=== PATIENT | female | born 1950 | race Caucasian/White ===

== ENCOUNTER 2016-06-26 13:45 | Outpatient (CLI) | payer MEDICARE, OTHER | END 2016-06-26 13:46 | disposition home or self-care (01) | DX: G47.33 Obstructive sleep apnea (adult) (pediatric) (principal) | CPT/HCPCS: 99214; G0463 ==

== ENCOUNTER 2016-10-26 00:11 | Emergency (ER) | payer MEDICARE, OTHER ==
[2016-10-26] MEDS ORDERED: IOPAMIDOL-300 100 ML VIAL IVP ONE (03:00)
== END 2016-10-26 04:01 | disposition home or self-care (01) ==
DX: R07.89 Other chest pain (principal); R68.84 Jaw pain; M54.9 Dorsalgia, unspecified; I10 Essential (primary) hypertension; Z79.82 Long term (current) use of aspirin
CPT/HCPCS: 36415; 71020; 71275; 80053; 83690; 84484; 85025; 85379; 93005; 93010; 99283; 99284; Q9967

== ENCOUNTER 2016-11-02 11:14 | Outpatient (CLI) | payer MEDICARE, OTHER | END 2016-11-02 11:15 | disposition home or self-care (01) | LOC: DI 11:14 | PROVIDERS: ATTEND Family Medicine | DX: I51.7 Cardiomegaly (principal); I25.10 Atherosclerotic heart disease of native coronary artery without angina pectoris | CPT/HCPCS: 93306 ==

== ENCOUNTER 2017-01-03 10:41 | Outpatient (CLI) | payer MEDICARE, OTHER ==
--- NOTE | 2016-12-20 20:00 | CARDIAC PROCEDURE NOTE ---
DATE OF SERVICE: 12/20/2016 00:00:00 PRIMARY CARE PHYSICIAN: Helene Kitchen M.D. PROCEDURES PERFORMED: Pharmacologic stress test. The patient arrived today having had a cup of caffeinated coffee just one hour prior to arrival, desp ite having been counseled otherwise. She will be rescheduled for her test. JOB #: [id number] EXT JOB #:[id number]
--- NOTE | 2017-01-03 16:39 | Nuclear Medicine Report ---
EXAM: SINGLE-ISOTOPE PHARMACOLOGICAL STRESS TEST WITH ADENOSINE. SINGLE-ISOTOPE AND SAME-DAY REST/STRESS MY OCARDIAL PERFUSION SCANS WITH TOMOGRAPHIC IMAGING, QUANTITATIVE ANALYSIS, WALL MOTION ANALYSIS AND CA LCULATION OF EJECTION FRACTION. EXAM DATE: 01/03/2017 12:08 p.m. CLINICAL HISTORY: Chest pain, hypertension. COMPARISON: None. TECHNIQUE: Following the intravenous administration of 10.7 mCi of Tc-99m sestamibi, a rest myocardia l perfusion scan was done with tomography. Motion correction was applied when appropriate. After a delay of several hours on the same day, a pharmacological stress was performed with the infus ion of adenosine. According to protocol, 41.7 mCi of Tc-99m sestamibi was injected for stress myocard ial perfusion scan. Stress myocardial perfusion was done with tomography without attenuation correcti on. Motion correction was applied when appropriate. Gated tomographic images were obtained for wall motion analysis and computation of left ventricular ejection fraction. FINDINGS: No fixed or reversible perfusion defect. Normal chamber size. Normal wall motion. The left ventricular end-diastolic volume is 85 cc. The left ventricular end-systolic volume is 22 cc . The left ventricular ejection fraction is calculated to be 74%. IMPRESSION: 1. No ischemia or infarction. 2. Normal ejection fraction of 74% 3. Normal chamber size and wall motion. [facility] Referring Provider Line: [phone] SITE ID: [id number]
[2017-01-03 17:25] VITALS: BP 138/90
--- NOTE | 2017-01-07 07:37 | CARDIAC PROCEDURE NOTE ---
DATE OF SERVICE: 01/03/2017 00:00:00 PRIMARY CARE PROVIDER: Helene Kitchen MD PROCEDURE: Pharmacologic stress test. PROCEDURE SYMPTOMS: Chest pain with ER workup. CARDIAC RISK FACTORS INCLUDE: Age, hypertension, and hyperlipidemia. PREVIOUS CARDIAC PROCEDURES: There are no prior cardiac procedures. CLINICAL HISTORY: A 66-year-old female without known coronary artery disease. INITIAL RESTING VITAL SIGNS: Blood pressure 138/90, heart rate 68, height 63 inches, weight 248 poun ds, BMI 43.7. PROCEDURE AND FINDINGS: Patient identity and date verified, consent signed. Safety stop. Pha rmacologic stress testing was performed with Lexiscan at a dose of 0.4 mg over 10 seconds. The heart rate increased to 97 beats per minute from the infusion. Blood pressure response was fercho l during the stress procedure. Patient developed slight symptoms of chest tightness, which resolved spontaneously. The resting electrocardiogram demonstrated normal sinus rhythm with no ST or T-wave c hanges. Maximum ST segment depression with stress was zero. There was no ectopy. FINAL IMPRESSIONS 1. Negative electrocardiogram for ischemia in the setting of vasodilator stress. 2. Negative stress test for angina. 3. No ectopy. 4. Await myocardial perfusion report. JOB #: [id number] EXT JOB #:[id number]
== END 2017-01-03 10:42 | disposition home or self-care (01) ==
LOC: DI 10:41
PROVIDERS: ATTEND Family Medicine
DX: R07.9 Chest pain, unspecified (principal); I10 Essential (primary) hypertension
CPT/HCPCS: 78452; 93017; A9500

== ENCOUNTER 2017-03-04 08:34 | Outpatient (CLI) | payer MEDICARE, OTHER ==
--- NOTE | 2017-03-05 19:24 | Mammography Report ---
DIGITAL SCREENING MAMMOGRAM: 03/04/2017 COMPARISON: 03/12/2016, 12/27/2014, 12/15/2013, 11/26/2012, 12/05/2011, 12/08/2010, 10/17/2009, 09/16, 03/19/2007. TECHNIQUE: Bilateral digital CC and MLO projections. FINDINGS: There are scattered fibroglandular densities. Small nodular densities in the right upper outer quadrant are unchanged. A few punctate calcifications are also stable. No suspicious dominant mass, architectural distortion, skin thickening, or suspicious new microcalcifications. IMPRESSION: NEGATIVE. BI-RADS 1. SUGGEST ROUTINE FOLLOWUP IN 1 YEAR. STANDARD QUALIFYING STATEMENTS 1. This examination was reviewed with the aid of Computer-Aided Detection (CAD). 2. A negative or benign imaging report should not delay biopsy if clinically suspicious findings are present. Consider surgical consultation if warranted. More than 5% of cancers are not identified by i maging. 3. Dense breasts may obscure an underlying neoplasm. JOB #: [id number] EXT JOB #:[id number]
== END 2017-03-04 08:35 | disposition home or self-care (01) ==
LOC: DI 08:34
PROVIDERS: ATTEND Family Medicine
DX: Z12.31 Encounter for screening mammogram for malignant neoplasm of breast (principal)
CPT/HCPCS: 77067

== ENCOUNTER 2017-04-09 08:28 | Outpatient (CLI) | payer MEDICARE, OTHER ==
[2017-04-09 12:39] LABS: BASOPHILS % (AUTO) 0.6 %; EOSINOPHILS # (AUTO) 0.2 10^3/uL (0.0-0.7); EOSINOPHILS % (AUTO) 2.6 %; HCT - HEMATOCRIT 37.5 % (37.0-47.0); HGB - HEMOGLOBIN 12.6 g/dL (12.0-16.0); LYMPHOCYTES # (AUTO) 2.3 10^3/uL (1.5-3.5); LYMPHOCYTES % (AUTO) 37.3 %; MEAN CORPUSCULAR HEMOGLOBIN 31.2 pg (27.0-31.0); MEAN CORPUSCULAR HGB CONC 33.7 g/dL (32.0-36.0); MEAN CORPUSCULAR VOLUME 92.5 fL (81.0-99.0); MEAN PLATELET VOLUME 8.7 fL (7.9-10.8); MONOCYTES # (AUTO) 0.5 10^3/uL (0.0-1.0); MONOCYTES % (AUTO) 7.6 %; NEUTROPHILS # (AUTO) 3.2 10^3/uL (1.5-6.6); NEUTROPHILS % (AUTO) 51.9 %; RED BLOOD COUNT 4.05 10^6/uL (4.20-5.40); RED CELL DISTRIBUTION WIDTH 13.2 % (12.0-15.0); UNCORRECTED WHITE BLOOD COUNT 6.1 x10^3/uL; WHITE BLOOD COUNT 6.1 x10^3/uL (4.8-10.8)
[2017-04-09 13:18] LABS: ALBUMIN/GLOBULIN RATIO 1.3 (1.0-2.2); BILIRUBIN,TOTAL 0.6 mg/dL (0.2-1.0); BUN - BLOOD UREA NITROGEN 11 mg/dL (6-20); CALCIUM 9.3 mg/dL (8.5-10.3); CARBON DIOXIDE - CO2 27 mmol/L (21-32); CHLORIDE 105 mmol/L (101-111); CHOL/HDL RATIO 3.7 (<4.4); CHOLESTEROL 176 mg/dL; CREATININE 0.8 mg/dL (0.4-1.0); GFR - MDRD 72 (>89); GLUCOSE 95 mg/dL (70-100); HDL CHOLESTEROL 47 mg/dL; LDL/HDL RATIO 2.1 (<4.4); POTASSIUM 3.9 mmol/L (3.5-5.0); SODIUM 141 mmol/L (135-145); TRIGLYCERIDES 155 mg/dL; VLDL CHOLESTEROL 31 mg/dL
== END 2017-04-09 08:29 ==
LOC: LAB.WCP 08:28
PROVIDERS: ATTEND Family Medicine
DX: I10 Essential (primary) hypertension (principal); E78.5 Hyperlipidemia, unspecified
CPT/HCPCS: 36415; 80053; 80061; 85025

== ENCOUNTER 2017-09-05 10:15 | Outpatient (CLI) | payer MEDICARE, OTHER | END 2017-09-05 10:16 | disposition home or self-care (01) | LOC: SC 10:15 | PROVIDERS: ATTEND Nurse Practitioner Family | DX: G47.33 Obstructive sleep apnea (adult) (pediatric) (principal) | CPT/HCPCS: 99214; G0463; 99212 ==

== ENCOUNTER 2018-01-22 08:00 | Outpatient (CLI) | payer MEDICARE, OTHER ==
[2018-01-22 13:31] LABS: BASOPHILS % (AUTO) 0.5 %; EOSINOPHILS # (AUTO) 0.1 10^3/uL (0.0-0.7); EOSINOPHILS % (AUTO) 2.5 %; HGB - HEMOGLOBIN 12.8 g/dL (12.0-16.0); LYMPHOCYTES # (AUTO) 2.3 10^3/uL (1.5-3.5); LYMPHOCYTES % (AUTO) 40.8 %; MEAN CORPUSCULAR HEMOGLOBIN 31.1 pg (27.0-31.0); MEAN CORPUSCULAR HGB CONC 33.8 g/dL (32.0-36.0); MEAN PLATELET VOLUME 9.2 fL (7.9-10.8); MONOCYTES # (AUTO) 0.4 10^3/uL (0.0-1.0); MONOCYTES % (AUTO) 7.7 %; NEUTROPHILS # (AUTO) 2.8 10^3/uL (1.5-6.6); NEUTROPHILS % (AUTO) 48.5 %; PLT - PLATELET COUNT 154 10^3/uL (130-450); RED BLOOD COUNT 4.12 10^6/uL (4.20-5.40); RED CELL DISTRIBUTION WIDTH 13.6 % (12.0-15.0); WHITE BLOOD COUNT 5.7 x10^3/uL (4.8-10.8)
[2018-01-22 13:46] LABS: ALBUMIN/GLOBULIN RATIO 1.3 (1.0-2.2); ALKALINE PHOSPHATASE 81 IU/L (42-121); ALT ALANINE AMINOTRANSFERASE 16 IU/L (10-60); AST ASPARTATE AMINOTRANSFERASE 17 IU/L (10-42); BILIRUBIN,TOTAL 0.5 mg/dL (0.2-1.0); BUN - BLOOD UREA NITROGEN 12 mg/dL (6-20); CALCIUM 9.2 mg/dL (8.5-10.3); CARBON DIOXIDE - CO2 27 mmol/L (21-32); CHLORIDE 104 mmol/L (101-111); CHOL/HDL RATIO 3.5 (<4.4); CHOLESTEROL 174 mg/dL; CREATININE 0.8 mg/dL (0.4-1.0); GFR - MDRD 72 (>89); GLUCOSE 104 mg/dL (70-100); HDL CHOLESTEROL 50 mg/dL; LDL CHOLESTEROL,CALCULATED 95 mg/dL; LDL/HDL RATIO 1.9 (<4.4); SODIUM 139 mmol/L (135-145); TOTAL PROTEIN 7.2 g/dL (6.7-8.2); VLDL CHOLESTEROL 29 mg/dL
== END 2018-01-22 08:01 | disposition home or self-care (01) ==
LOC: LAB.WCP 08:00
PROVIDERS: ATTEND Family Medicine
DX: I51.7 Cardiomegaly (principal); E78.5 Hyperlipidemia, unspecified; I10 Essential (primary) hypertension; Z79.899 Other long term (current) drug therapy
CPT/HCPCS: 36415; 80053; 80061; 83721; 85025

== ENCOUNTER 2018-01-25 07:33 | Outpatient (CLI) | payer MEDICARE, OTHER ==
--- NOTE | 2018-01-25 23:51 | MRI Report ---
Procedure Date: 01/25/2018 Accession Number: [id number] / [id number] Procedure: MRI - Lumbar Spine W/O CPT Code: FULL RESULT: EXAM: MRI LUMBAR SPINE WITHOUT CONTRAST EXAM DATE: 01/25/2018 07:53 AM. CLINICAL HISTORY: Incontinence of feces, low back pain. COMPARISON: None. TECHNIQUE: Multiplanar, multisequence T1-weighted and fluid-sensitive sequences of the lumbar spine from T12 to S1 without contrast. Other: None. FINDINGS: Spinal Canal: The conus terminates at L1. The conus medullaris and cauda equina are unremarkable. Alignment: No scoliosis or spondylolisthesis. Bone Marrow: Five djs-ugt-nkeiiru lumbar vertebral bodies are assumed. No gross fractures or bone lesions. No bone marrow replacement. Disk Levels/Facets: T12-L1: Mild disk degeneration. Negative for spinal canal stenosis or foraminal stenosis. L1-L2: Mild disk degeneration. The intervertebral foramina are negative for stenosis. Negative for spinal canal stenosis. L2-L3: Moderate disk degeneration. The left intervertebral foramen is negative for stenosis. Mild right foraminal stenosis from foraminal 2 mm disk protrusion. Posterior element hypertrophy. L3-L4: Diffuse disk bulge. Negative for spinal canal stenosis or foraminal stenosis. Mild disk degeneration. L4-L5: Posterior right paracentral 2 mm disk protrusion with mild right lateral recess stenosis (image 11 series 601). Negative for foraminal stenosis. Mild facet joint arthrosis. L5-S1: Central posterior 2 mm disk protrusion without thecal sac deformity or S1 nerve root effacement. The intervertebral foramina are negative for stenosis. Musculature: Low lumbar and sacrum posterior paraspinal muscle atrophy with fatty replacement. Other: Large posterior right kidney 6 cm cyst. IMPRESSION: 1. Posterior central 2 mm L5-S1 disk protrusion without thecal sac deformity, S1 nerve root displacement or spinal canal stenosis. 2. Posterior right paracentral L4-L5 2 mm disk protrusion with mild right lateral recess stenosis. Comment: The following findings are so common in adults without low back pain that while we report their presence, they must be interpreted with caution and in the context of the clinical situation. (Reference Charank et al, Spine 2001) Prevalence of findings in patients without low back pain: Disk degeneration (any evidence): 92% Disk desiccation/T2 signal loss: 83% Disk height loss: 56% Disk bulge: 64% Disk protrusion: 32% Annular tear/high intensity zone: 38% RADIA
== END 2018-01-25 07:34 | disposition home or self-care (01) ==
LOC: DI 07:33
PROVIDERS: ATTEND Family Medicine
DX: M51.36 Other intervertebral disc degeneration, lumbar region (principal); M51.26 Other intervertebral disc displacement, lumbar region; M48.061 Spinal stenosis, lumbar region without neurogenic claudication; R15.9 Full incontinence of feces
CPT/HCPCS: 72148

== ENCOUNTER 2018-02-05 17:45 | Outpatient (CLI) | payer MEDICARE, OTHER ==
--- NOTE | 2018-02-06 11:00 | Ultrasound Report ---
Procedure Date: 02/05/2018 Accession Number: [id number] / [id number] Procedure: US - Retroperitoneal CPT Code: FULL RESULT: EXAM: RENAL ULTRASOUND EXAM DATE: 02/05/2018 07:12 PM. CLINICAL HISTORY: ABNORMAL RADIOLOGIC FINDINGS ON DI OF RIGHT KIDNEY. COMPARISON: MRI lumbar spine 01/25/2018. TECHNIQUE: Real-time scanning was performed with static images obtained. FINDINGS: Right Kidney: 11.5 x 6.6 x 6.1 cm. Simple posterior cyst 4.9 x 5.1 x 5.5 cm. Normal echotexture with no stones, contour-deforming solid masses, or hydronephrosis. Left Kidney: 11.3 x 5.7 x 5.3 cm. 5 mm non-shadowing echogenic focus interpolar region, question fat or non-shadowing stone. Normal echotexture with no other potential stones, contour-deforming solid masses, or hydronephrosis. Bladder: Bilateral jets seen. The prevoid bladder volume was 332 cc. The postvoid bladder volume was 30 cc. Other: None. IMPRESSION: 1. 4.9 x 5.1 x 5.5 cm right renal cyst. 2. 5 mm left non-shadowing interpolar echogenic focus, question fat versus non-shadowing stone. 3. No evidence of obstruction or suspicious solid masses. RADIA
== END 2018-02-05 17:46 | disposition home or self-care (01) ==
LOC: DI 17:45
PROVIDERS: ATTEND Family Medicine
DX: N28.1 Cyst of kidney, acquired (principal); R93.421 Abnormal radiologic findings on diagnostic imaging of right kidney
CPT/HCPCS: 76770

== ENCOUNTER 2018-07-18 21:37 | Outpatient (CLI) | payer MEDICARE, OTHER ==
--- NOTE | 2018-07-19 00:52 | XRAY Report ---
Reason: LEG PAIN,RIGHT,KNEE PAIN,RIGHT Procedure Date: 07/18/2018 Accession Number: [id number] / [id number] Procedure: XR - Knee 3 View RT CPT Code: FULL RESULT: EXAM: RIGHT KNEE RADIOGRAPHY EXAM DATE: 07/18/2018 09:48 PM. CLINICAL HISTORY: Leg pain, right; knee pain, right. COMPARISON: None. TECHNIQUE: 3 views. FINDINGS: Bones: Normal. No fractures or bone lesions. Joints: Moderate narrowing of the patellofemoral joint space with mild medial compartment narrowing. Small tricompartment marginal osteophytes seen. There is no joint effusion or malalignment. Soft Tissues: Normal. No soft tissue swelling. IMPRESSION: Mild to moderate osteoarthritis. No acute bony abnormality. RADIA
== END 2018-07-18 21:38 | disposition home or self-care (01) ==
LOC: DI 21:37
PROVIDERS: ATTEND Family Medicine
DX: M17.11 Unilateral primary osteoarthritis, right knee (principal)

== ENCOUNTER 2018-07-19 19:33 | Outpatient (CLI) | payer MEDICARE, OTHER ==
--- NOTE | 2018-07-19 20:55 | Ultrasound Report ---
Reason: LEG PAIN RIGHT,KNEE PAIN RIGHT Procedure Date: 07/19/2018 Accession Number: [id number] / [id number] Procedure: US - Duplex Ext Veins Right CPT Code: FULL RESULT: EXAM: RIGHT LOWER EXTREMITY VENOUS ULTRASOUND EXAM DATE: 07/19/2018 08:45 PM. CLINICAL HISTORY: LEG PAIN RIGHT,KNEE PAIN RIGHT. COMPARISON: None. TECHNIQUE: Real-time sonographic vascular imaging was performed by the beef killer through the lower extremity utilizing both color-flow and Doppler spectral analysis. Multiple artist representative static images were saved for review. FINDINGS: Common Femoral Vein (CFV): Normal. CFV-GSV Junction: Normal. Profunda Femoral Vein (PFV): Normal. Femoral Vein (FV) Prox: Normal. Femoral Vein (FV) Mid: Normal. Femoral Vein (FV) Dist: Normal. Popliteal Vein: Normal. Posterior Tibial Veins: Normal. Peroneal Veins: Normal. IMPRESSION: No evidence for deep venous thrombosis. RADIA
== END 2018-07-19 19:34 | disposition home or self-care (01) ==
LOC: DI 19:33
PROVIDERS: ATTEND Family Medicine
DX: M79.604 Pain in right leg (principal); M25.561 Pain in right knee

== ENCOUNTER 2018-08-02 14:50 | Outpatient (CLI) | payer MEDICARE, OTHER ==
--- NOTE | 2018-08-05 11:36 | Ultrasound Report ---
Reason: RENAL CYST,RIGHT Procedure Date: 08/02/2018 Accession Number: [id number] / [id number] Procedure: US - Retroperitoneal CPT Code: FULL RESULT: EXAM: RENAL ULTRASOUND EXAM DATE: 08/02/2018 04:25 PM. CLINICAL HISTORY: Renal cyst, right. COMPARISON: Retroperitoneal 02/05/2018 7:12 PM. TECHNIQUE: Real-time scanning was performed with static images obtained. FINDINGS: Right Kidney: 13.2 x 5.4 x 5.1 cm. Normal echotexture with no stones, contour-deforming masses, or hydronephrosis. Anechoic 6 x 4.4 x 6.1 cm mid right renal cyst. Previously measuring 4.9 x 5.1 x 5.5 cm. No concerning features. Left Kidney: 12.3 x 5.4 x 5.1 cm. No contour deforming renal mass or hydronephrosis. Echogenic 1 cm inferior left renal echogenic foci without posterior acoustic shadowing. Bladder: Bilateral jets seen. The prevoid bladder volume was 341 cc. The postvoid bladder volume was 20 cc. Other: None. IMPRESSION: 1. 1 cm echogenic focus in the mid left kidney without posterior acoustic shadowing. Differential includes a fat-containing lesion like an angiomyolipoma or complex hemorrhagic cyst. 2. Simple 6 cm right renal cyst. Previously measuring 5.5 cm. No hydronephrosis in either kidney. 3. Normal bladder. RADIA
== END 2018-08-02 14:51 | disposition home or self-care (01) ==
LOC: DI 14:50
PROVIDERS: ATTEND Family Medicine
DX: N28.1 Cyst of kidney, acquired (principal)
CPT/HCPCS: 76770

== ENCOUNTER 2018-09-16 13:34 | Outpatient (CLI) | payer MEDICARE, OTHER | END 2018-09-16 13:35 | disposition home or self-care (01) | LOC: SC 13:34 | PROVIDERS: ATTEND Nurse Practitioner Family | DX: G47.33 Obstructive sleep apnea (adult) (pediatric) (principal); R03.0 Elevated blood-pressure reading, without diagnosis of hypertension | CPT/HCPCS: 99214; G0463; 99212 ==

== ENCOUNTER 2018-10-08 08:00 | Outpatient (CLI) | payer MEDICARE, OTHER | END 2018-10-08 23:59 | disposition home or self-care (01) | LOC: LAB.R 08:00 | PROVIDERS: ATTEND Family Medicine | DX: N76.4 Abscess of vulva (principal) | CPT/HCPCS: 87070; 87077; 87181; 87205 ==

== ENCOUNTER 2019-03-11 15:12 | Outpatient (CLI) | payer MEDICARE, OTHER ==
--- NOTE | 2019-03-12 10:17 | Mammography Report ---
Reason: SCREENING MAMMO Procedure Date: 03/11/2019 Accession Number: [id number] / [id number] Procedure: KALLIE - Screening Mammo w/Dharmesh CPT Code: FULL RESULT: EXAM: Screening Mammo w/Dharmesh DATE: 03/11/2019 3:46 PM CLINICAL HISTORY: Screening encounter. History of benign breast biopsy on both sides. TECHNIQUE: (B) - Bilateral CC and MLO views were obtained. COMPARISON: 03/04/2017 through 12/15/2013. PARENCHYMAL PATTERN: (F) - The breast(s) demonstrate(s) diffuse fatty replacement. FINDINGS: Postbiopsy changes are again seen, more pronounced in the right breast. These are typically benign in appearance. Long-term stability of a cluster of isodense sub-5 mm well-circumscribed nodules in the lateral right breast is redemonstrated, typically benign. There are no suspicious masses, calcifications, or areas of distortion. IMPRESSION: Benign findings. BI-RADS category 2. RECOMMENDATION: (ANNUAL) - Recommend routine annual screening mammography. BI-RADS CATEGORY: (2) - Benign Findings. STANDARD QUALIFYING STATEMENTS: 1. This examination was not reviewed with the aid of Computer-Aided Detection (CAD). 2. A negative or benign imaging report should not preclude biopsy if clinically suspicious findings are present. 3. Dense breasts may obscure an underlying neoplasm. 4. This examination was reviewed with the aid of 3D breast imaging (tomosynthesis).
== END 2019-03-11 15:13 | disposition home or self-care (01) ==
LOC: DI 15:12
DX: Z12.31 Encounter for screening mammogram for malignant neoplasm of breast (principal)
CPT/HCPCS: 77063; 77067

== ENCOUNTER 2019-11-04 08:00 | Outpatient (CLI) | payer MEDICARE, OTHER ==
[2019-11-04 13:27] LABS: BASOPHILS % (AUTO) 0.5 %; EOSINOPHILS # (AUTO) 0.2 10^3/uL (0.0-0.7); EOSINOPHILS % (AUTO) 2.6 %; HGB - HEMOGLOBIN 12.9 g/dL (12.0-16.0); LYMPHOCYTES # (AUTO) 2.1 10^3/uL (1.5-3.5); MEAN CORPUSCULAR HEMOGLOBIN 30.9 pg (27.0-31.0); MEAN CORPUSCULAR HGB CONC 31.3 g/dL (32.0-36.0); MEAN CORPUSCULAR VOLUME 98.8 fL (81.0-99.0); MEAN PLATELET VOLUME 11.7 fL (7.9-10.8); MONOCYTES # (AUTO) 0.5 10^3/uL (0.0-1.0); MONOCYTES % (AUTO) 7.8 %; NEUTROPHILS # (AUTO) 3.3 10^3/uL (1.5-6.6); NEUTROPHILS % (AUTO) 54.8 %; PLT - PLATELET COUNT 156 10^3/uL (130-450); RED BLOOD COUNT 4.17 10^6/uL (4.20-5.40); WHITE BLOOD COUNT 6.1 x10^3/uL (4.8-10.8)
[2019-11-04 14:11] LABS: ALBUMIN 3.7 g/dL (3.2-5.5); ALBUMIN/GLOBULIN RATIO 1.1 (1.0-2.2); ALKALINE PHOSPHATASE 79 IU/L (42-121); ALT ALANINE AMINOTRANSFERASE 15 IU/L (10-60); AST ASPARTATE AMINOTRANSFERASE 14 IU/L (10-42); BILIRUBIN,TOTAL 0.6 mg/dL (0.2-1.0); BUN - BLOOD UREA NITROGEN 12 mg/dL (6-20); CALCIUM 9.2 mg/dL (8.5-10.3); CARBON DIOXIDE - CO2 27 mmol/L (21-32); CHLORIDE 106 mmol/L (101-111); CHOL/HDL RATIO 3.6 (<4.4); CHOLESTEROL 168 mg/dL; CREATININE 0.9 mg/dL (0.4-1.0); GLUCOSE 109 mg/dL (70-100); HDL CHOLESTEROL 47 mg/dL; LDL CHOLESTEROL,CALCULATED 96 mg/dL; SODIUM 141 mmol/L (135-145); TOTAL PROTEIN 7.2 g/dL (6.7-8.2); VLDL CHOLESTEROL 25 mg/dL
== END 2019-11-04 23:59 | disposition home or self-care (01) ==
LOC: LAB.WCP 08:00
PROVIDERS: ATTEND Family Medicine
DX: E78.5 Hyperlipidemia, unspecified (principal); I10 Essential (primary) hypertension
CPT/HCPCS: 36415; 80053; 80061; 83721; 84443; 85025

== ENCOUNTER 2019-11-12 11:22 | Outpatient (CLI) | payer MEDICARE, OTHER ==
[2019-11-12] MEDS ORDERED: IOVERSOL 320 100 ML VIAL IVP ONE ×2 (11:48→14:37)
--- NOTE | 2019-11-14 09:03 | CT Report ---
Reason: ADRENAL TUMOR Procedure Date: 11/12/2019 Accession Number: [id number] / [id number] Procedure: CT - ABDOMEN W/WO CPT Code: Final Report FULL RESULT: EXAM: CT ABDOMEN WITHOUT AND WITH CONTRAST (CT ADRENALS) EXAM DATE: 11/12/2019 12:13 PM. CLINICAL HISTORY: Evaluate adrenal tumor. COMPARISONS: Renal ultrasound from 08/02/2018, 02/05/2018. TECHNIQUE: Routine helical CT imaging was performed through the adrenal glands precontrast, in the portal venous phase and after a 15-minute delay. IV contrast: 100 cc Optiray 320. Reconstructions: Coronals and sagittal. In accordance with CT protocol optimization, one or more of the following dose reduction techniques were utilized for this exam: automated exposure control, adjustment of mA and/or KV based on patient size, or use of iterative reconstructive technique. FINDINGS: Lung Bases: There is wedge-shaped opacity in the anterior segment of the right upper lobe and linear opacities in the right middle lobe and lingula, which are most compatible with atelectasis or scar. A 6 mm nodule is demonstrated in the right lower lobe (series 4, image 22). Heart is mildly enlarged. Adrenal Glands: A 1.4 x 1.0 cm adrenal nodule is present (series 17, image 40). Attenuation on noncontrast image is -12 HU. Absolute washout is 61.7%. Relative washout is 82.9%. All of these characteristics are compatible with adenoma. Left adrenal gland is unremarkable. Other Solid Organs: Liver, spleen, and pancreas are unremarkable. A 6.4 cm cyst is present in the lower pole of the right kidney (series 17, image 74). A 1.2 cm lesion in the interpolar region of the left kidney (series 17, image 55) does not demonstrate appreciable enhancement in comparison to noncontrast phase, suggestive of a cyst. Additional subcentimeter hypoattenuating foci are present in both kidneys, too small to characterize. No nephrolithiasis or hydronephrosis. Gallbladder/Biliary System: Gallbladder is surgically absent. Caliber of the bile ducts is within normal limits. Bowel: There appear to be postoperative changes from gastric fundic location. A diverticulum of the second portion of the duodenum is present. No evidence of bowel obstruction or inflammation in the visualized portions. There is a tiny fat-containing ventral hernia in the left anterior abdomen (series 17, image 78). Bones: No suspicious osseous lesion. Other: There is mild atherosclerotic calcification of the abdominal aorta. No abdominal aortic aneurysm. No retroperitoneal adenopathy. IMPRESSION: 1. Right adrenal nodule demonstrates noncontrast attenuation and enhancement characteristics compatible with adrenal adenoma. A hyperfunctioning adenoma cannot be excluded by imaging. Consider correlation with biochemical testing. 2. Indeterminate 6 mm right lower lobe pulmonary nodule. If prior studies are not available to establish stability of this nodule, follow-up chest CT is recommended in 6-12 months in accordance with Fleischner Society guidelines. RADIA
== END 2019-11-12 11:23 | disposition home or self-care (01) ==
LOC: DI 11:22
PROVIDERS: ATTEND Internal Medicine Nephrology
DX: D35.01 Benign neoplasm of right adrenal gland (principal); R91.1 Solitary pulmonary nodule
CPT/HCPCS: 74170; Q9967

== ENCOUNTER 2020-10-27 08:35 | Outpatient (CLI) | payer MEDICARE, OTHER ==
--- NOTE | 2020-10-27 10:35 | CT Report ---
PROCEDURE: CHEST WO INDICATIONS: PULMONARY NODULE TECHNIQUE: Noncontrast 5 mm thick sections acquired from the pulmonary apices to the posterior costophrenic angl es. 7 mm thick coronal and sagittal MIP reformats were then acquired. For radiation dose reduction, the following was used: automated exposure control, adjustment of mA and/or kV according to patient size. COMPARISON: CT dated 11/12/2019 FINDINGS: Image quality: Excellent. Lungs and pleura: No acute air space opacities. Previously identified 6 mm diameter nodule within t he posterior medial aspect of the right lower lobe (series 4 image 222) is unchanged. Scarring within the lateral lingula is unchanged. Scarring within the right middle lobe medial segment is unchanged. No pleural effusions or pneumothorax. Central and peripheral airways are patent and normal in calib er. Mediastinum: Heart size is mildly enlarged. Mild calcification of the coronary vasculature. No peric ardial effusion. No mediastinal adenopathy by size criteria. Thoracic aorta and central pulmonary a rteries are normal in size. Esophagus is normal in caliber. No hiatal hernia. Bones and chest wall: No suspicious bony lesions. No vertebral body compression fractures. No axil deven or supraclavicular adenopathy by size criteria. The thyroid is normal in size. Abdomen: Visualized upper abdominal solid organs and bowel loops appear normal in the absence of con trast. IMPRESSION: 1. Stable right lower lobe pulmonary nodule. 2. Coronary artery disease. Reviewed by: Leola Aceves MD on 10/27/2020 10:33 AM PDT Approved by: Leola Aceves MD on 10/27/2020 10:33 AM PDT Station ID: [id number]
== END 2020-10-27 08:36 | disposition home or self-care (01) ==
LOC: DI 08:35
PROVIDERS: ATTEND Family Medicine
DX: R91.1 Solitary pulmonary nodule (principal); I25.10 Atherosclerotic heart disease of native coronary artery without angina pectoris

== ENCOUNTER 2020-11-04 08:47 | Outpatient (CLI) | payer MEDICARE, OTHER ==
--- NOTE | 2020-11-08 12:41 | Mammography Report ---
BILATERAL DIGITAL SCREENING MAMMOGRAM 3D/2D: 11/04/2020 CLINICAL: Routine screening. Comparison is made to exams dated: 03/11/2019 mammogram, 03/04/2017 mammogram, 03/12/2016 mammogram, mammogram, 12/15/2013 mammogram, and 11/26/2012 mammogram - [facility]. The t issue of both breasts is predominantly fatty. No significant masses, calcifications, or other findings are seen in either breast. There has been no significant interval change. IMPRESSION: NEGATIVE There is no mammographic evidence of malignancy. A 1 year screening mammogram is recommended. This exam was interpreted at Station ID: [id number]. NOTE: For mammograms, a report in lay terms will be sent to the patient. Approximately 15% of breast malignancies will not be visualized mammographically. In the management of a palpable breast mass, a negative mammogram must not discourage biopsy of a clinically suspicious lesion. Electronically Signed By: Simon Del Cid M.D. [facility] [place]:11/08/2020 10:33:45 ACR BI-RADS Category 1: Negative 3341F PARENCHYMAL PATTERN: (F) - The breast(s) demonstrate(s) diffuse fatty replacement. BI-RADS CATEGORY: (1) - 1 RECOMMENDATION: (ANNUAL) - Recommend routine annual screening mammography. [id number] 1 year screening LATERALITY: (B)
== END 2020-11-04 08:48 | disposition home or self-care (01) ==
LOC: DI 08:47
PROVIDERS: ATTEND Internal Medicine
DX: Z12.31 Encounter for screening mammogram for malignant neoplasm of breast (principal)

== ENCOUNTER 2020-12-05 09:08 | Outpatient (CLI) | payer MEDICARE, OTHER ==
--- NOTE | 2020-12-05 09:36 | SLEEP CARE CONSULTATION ---
Information from patient questionnaire entered by Adelina Easley. I have reviewed and concur with the information entered by Adelina Easley. This document represents the service I personally performed and the decisions made by me, Fany Sauceda MD, [facility]. History of Present Illness Service Date and Time: 12/05/2020 0908 Previous diagnosis: Severe, Obstructive Sleep Apnea-Hypopnea Syndrome AHI: 36.1 (in 2007) Reason for follow up: annual (last seen 11/2019) Equipment type: CPAP Equipment obtained from: [employer] Mask style: Nasal Mask brand: Respironics (Wisp) Prior sleep studies: Yes Year and Where: 2007 - [facility] Type of Sleep Study: Polysomnography HPI additional information: HPI: Ms. Gonzalez was diagnosed to have severe (AHI 36.1) obstructive sleep apnea- hypopnea syndrome in May 2008 and returned today for her annual follow up of CPAP therapy. The compliance report was reviewed. She continues to have good compliance. The > 4 hour compliance rate for the past 30 days is 91%. Pressure setting of 11 14 cmH2O is effective. Residual AHI is 3.3. Average time in large leak per day is 11 minutes. She wears a ResMed N20 nasal mask. CPAP Compliance Data - Data Reviewed with Patient Average duration of nightly device use: 7 hr 21 min Compliance rate %: 91.1 (180 days) Current pressure setting (cmH2O): 11-14 Humidity settin Heated hose settin Average residual AHI: 3.3 Average large leak: 11 min 36 sec Subjective Missed days of use due to: reports: mask issues Patient concerns: reports: mask leak noise Initial [place] Sleepiness Scale score: 9 (in 2007) Current [place] Sleepiness Scale score: 2 Allergies and Home Medications Drug allergies reviewed: Yes Home medication list reviewed: Yes Review of Systems Review of systems same as previous: Yes Physical Exam Height: 5 ft 3 in Weight: 260 lb Weight change since last visit: -3 lbs Body Mass Index: 46.0 BMI Classification: Morbidly Obese Impression and Plan IMPRESSION: 1. Obstructive Sleep Apnea-Hypopnea Syndrome, severe, with good treatment compliance and good apnea control. Because her Goran Respironics DreamStation device is being recalled, I will order her a new one. It is also almost 5 years old. PLAN: 1. Prescription made for an autoCPAP, heated humidifier, and related supplies. * Try to lose weight. * Return for follow up after one month of using the CPAP. Visit Type: In Office Time Spent with Patient (minutes): 15 Provider Statement: I spent 100% of the Face to Face Visit with the patient with greater than 50% spent counseling the patient and coordination of care.
== END 2020-12-05 09:09 | disposition home or self-care (01) ==
LOC: SC 09:08
PROVIDERS: ATTEND Internal Medicine Pulmonary Disease
DX: G47.33 Obstructive sleep apnea (adult) (pediatric) (principal); E66.01 Morbid (severe) obesity due to excess calories; Z68.42 Body mass index [BMI] 45.0-49.9, adult
CPT/HCPCS: 99212; G0463

== ENCOUNTER 2020-12-16 11:26 | Day surgery (SDC) | payer MEDICARE, OTHER ==
[2020-12-16] MEDS ORDERED: LACTATED RINGERS 1,000 ML IV ONE ×2 (11:30→13:22)
[2020-12-16] MEDS ORDERED: MIDAZOLAM 2 MG/2 ML VIAL ONE ×3 (12:07→12:47)
[2020-12-16] MEDS ORDERED: fentaNYL 250 MCG/5 ML VIAL ONE (12:07)
--- NOTE | 2020-12-16 12:15 | HISTORY & PHYSICAL EXAMINATION ---
Chief Complaint - Chief Complaint Chief Complaint: here for colon cancer screening History of Present Illness - History Obtained From Records Reviewed: yes History obtained from: pt Exam Limitations: none - History of Present Illness HPI Comment/Other: Here for colon cancer screening. Last screening over 10 years ago. No lower gi symptoms. History - Past Medical History Cardiovascular: reports: Hypertension, High cholesterol Respiratory: reports: Sleep apnea, CPAP use Endocrine/Autoimmune: reports: None GI: reports: None : reports: Kidney stones, Other HEENT: reports: None Psych: reports: None Musculoskeletal: reports: None Derm: reports: None MRSA Hx?: No - Past Surgical History General: reports: Cholecystectomy, Bowel surgery, Colonoscopy Meds/Allgy - Home Medications Home Medications: Ambulatory Orders Medication Instructions Recorded Confirmed Aspirin [Aspir 81] 81 mg PO DAILY 07/31/14 12/16/20 Lovastatin [Altoprev] 40 mg ORAL DAILY 07/31/14 12/16/20 Metoprolol Tartrate [Lopressor] 100 mg PO DAILY 07/31/14 12/16/20 Valacyclovir HCl [Valtrex] 500 mg PO DAILY 07/31/14 12/16/20 - Allergies Allergies/Adverse Reactions: Allergies Allergy/AdvReac Type Severity Reaction Status Date / Time No Known Drug Allergies Allergy Verified 12/16/20 11:56 Review of Systems - Other Findings Other Findings: 10 pt ros as above otherwise unremarkable Exam - Vital Signs Reviewed Vital Signs: Yes Vital Signs: Vital Signs x48h Temp Pulse Resp BP Pulse Ox 12/16/20 11:42 36.8 C 77 24 147/75 H 98 - Physical Exam General Appearance: positive: Alert Eyes Bilateral: positive: PERRL, EOMI ENT: positive: No signs of dehydration Neck: positive: No JVD Respiratory: positive: Breath sounds nml Cardiovascular: positive: Regular rate & rhythm Abdomen: positive: Non-tender, No distention Conclusion/Plan - Problem List (1) Colon cancer screening Conclusion/Plan: plan colonoscopy. parq held and consent obtained
[2020-12-16 15:12] VITALS: BP 123/80
== END 2020-12-16 11:27 | disposition home or self-care (01) ==
LOC: SDS 11:26
PROVIDERS: ATTEND Surgery
PROC: 0DBL8ZX Excision of Transverse Colon, Via Natural or Artificial Opening Endoscopic, Diagnostic (ICD-10-PCS; 2020-12-16)
PROC: 0DBP8ZX Excision of Rectum, Via Natural or Artificial Opening Endoscopic, Diagnostic (ICD-10-PCS; principal; 2020-12-16 12:30)
DX: Z12.11 Encounter for screening for malignant neoplasm of colon (principal); D12.3 Benign neoplasm of transverse colon; D12.8 Benign neoplasm of rectum; K57.30 Diverticulosis of large intestine without perforation or abscess without bleeding
CPT/HCPCS: 45380; J3010; J7120

== ENCOUNTER 2021-01-17 07:40 | Outpatient (CLI) | payer MEDICARE, OTHER ==
[2021-01-17 13:16] LABS: BASOPHILS % (AUTO) 0.5 %; EOSINOPHILS # (AUTO) 0.2 10^3/uL (0.0-0.7); EOSINOPHILS % (AUTO) 2.6 %; HCT - HEMATOCRIT 39.4 % (37.0-47.0); HGB - HEMOGLOBIN 12.4 g/dL (12.0-16.0); LYMPHOCYTES # (AUTO) 2.3 10^3/uL (1.5-3.5); LYMPHOCYTES % (AUTO) 36.1 %; MEAN CORPUSCULAR HEMOGLOBIN 30.6 pg (27.0-31.0); MEAN CORPUSCULAR HGB CONC 31.5 g/dL (32.0-36.0); MEAN CORPUSCULAR VOLUME 97.3 fL (81.0-99.0); MONOCYTES # (AUTO) 0.5 10^3/uL (0.0-1.0); MONOCYTES % (AUTO) 7.2 %; NEUTROPHILS # (AUTO) 3.3 10^3/uL (1.5-6.6); NEUTROPHILS % (AUTO) 53.3 %; PLT - PLATELET COUNT 160 10^3/uL (130-450); RED BLOOD COUNT 4.05 10^6/uL (4.20-5.40); RED CELL DISTRIBUTION WIDTH 13.3 % (12.0-15.0); WHITE BLOOD COUNT 6.3 x10^3/uL (4.8-10.8)
[2021-01-17 13:30] LABS: ALBUMIN 3.8 g/dL (3.2-5.5); ALBUMIN/GLOBULIN RATIO 1.2 (1.0-2.2); ALKALINE PHOSPHATASE 72 IU/L (42-121); ALT ALANINE AMINOTRANSFERASE 17 IU/L (10-60); AST ASPARTATE AMINOTRANSFERASE 15 IU/L (10-42); BILIRUBIN,TOTAL 0.6 mg/dL (0.2-1.0); BUN - BLOOD UREA NITROGEN 15 mg/dL (6-20); CALCIUM 9.2 mg/dL (8.5-10.3); CARBON DIOXIDE - CO2 27 mmol/L (21-32); CHLORIDE 107 mmol/L (101-111); CHOL/HDL RATIO 3.4 (<4.4); CHOLESTEROL 163 mg/dL; CREATININE 0.8 mg/dL (0.4-1.0); GFR - MDRD 71 (>89); GLUCOSE 102 mg/dL (70-100); HDL CHOLESTEROL 48 mg/dL; LDL CHOLESTEROL,CALCULATED 94 mg/dL; SODIUM 142 mmol/L (135-145); TOTAL PROTEIN 6.9 g/dL (6.7-8.2); TRIGLYCERIDES 106 mg/dL; VLDL CHOLESTEROL 21 mg/dL
[2021-01-17 13:40] LABS: THYROID STIMULATING HORMONE 1.82 uIU/mL (0.34-5.60)
[2021-01-17 13:44] LABS: CREATININE,URINE 147.1 mg/dL; MICROALBUMIN,URINE 0.3 mg/dL (0-300.0)
[2021-01-17 14:00] LABS: ESTIMATED AVERAGE GLUCOSE 111 mg/dL (70-100); HEMOGLOBIN A1c% 5.5 % (4.27-6.07)
== END 2021-01-17 23:59 | disposition home or self-care (01) ==
LOC: LAB.WCP 07:40
PROVIDERS: ATTEND Internal Medicine
DX: I10 Essential (primary) hypertension (principal); R73.01 Impaired fasting glucose; E78.5 Hyperlipidemia, unspecified
CPT/HCPCS: 36415; 80053; 80061; 82043; 82570; 83036; 83721; 84443; 85025

== ENCOUNTER 2021-09-06 10:04 | Outpatient (CLI) | payer MEDICARE, OTHER ==
--- NOTE | 2021-09-06 10:14 | SLEEP CARE CONSULTATION ---
Information from patient questionnaire entered by Zayra Muniz MA. I have reviewed and concur with the information entered by Zayra Muniz MA. This document represents the service I personally performed and the decisions made by , Areli Peterson ARNP. History of Present Illness Service Date and Time: 09/06/2021 0940 Previous diagnosis: Severe, Obstructive Sleep Apnea-Hypopnea Syndrome AHI: 36.1 (in 2007) Reason for follow up: first compliance (SET UP06/30/21, RESMED), first compliance after device update Equipment type: CPAP Equipment obtained from: [employer] (getting supplies) Mask style: Nasal Backup mask available: Yes (old mask) Last cushion change: 2.5 months Prior sleep studies: Yes Year and Where: 2007 - [facility] Type of Sleep Study: Polysomnography HPI additional information: NADER ANDREWS was diagnosed to have severe, AHI 36.1, obstructive sleep apnea- hypopnea syndrome and returns via video teleheath visit today for CPAP therapy first compliance after updating device follow-up. Sleep Study - Results Type of Sleep Study: Polysomnography Prior sleep studies: Yes Year and Where: 2007 - [facility] CPAP Compliance Data - Data Reviewed with Patient Average duration of nightly device use: 7 HOURS 8 MINUTES Compliance rate %: 100 (30 days) Current pressure setting (cmH2O): 11-14 Average residual AHI: 1.9 Central apnea: 0.5 Obstructive apnea: 0.1 Subjective Patient concerns: denies: aerophagia, mask discomfort, air blowing in eyes, mask leak noise, condensation in mask/hose, nasal congestion, dry mouth, nose, throat, epistaxis Observed to snore while using device: No Current pressure setting perceived as: comfortable On therapy, patient: reports: sleeping better, awakening more refreshed, being more awake and alert during the day, more rested overall. denies: drowsiness while driving Initial [place] Sleepiness Scale score: 9 (in 2007) Current [place] Sleepiness Scale score: 1 Allergies and Home Medications Home medication list reviewed: Yes (no changes) Allergy and home medication list: Allergies No Known Drug Allergies Allergy (Verified 12/16/20 11:56) Review of Systems Review of systems same as previous: Yes (no changes) Physical Exam Vital signs obtained and entered by: Telehealth visit Height: 5 ft 3 in Weight change since last visit: losing weight Impression and Plan 1. Obstructive Sleep Apnea-Hypopnea Syndrome, severe, with excellent treatment compliance and good apnea control. On CPAP therapy, the patient has better sleep quality and is more rested overall. Patient is doing well with her new device. She has no concerns or complaints with mask use. She has excellent compliance and significant improvement of her sleep apnea. Patient has been losing weight with an increased regimen of exercise but she has not weighed lately. I encourage patient to continue to try to lose weight to improve her overall heal th and reduce sleep apneas. Patient's apnea severity and rationale for treatment to reduce apnea, improve sleep quality and reduce cardiovascular and cerebrovascular events was reviewed. I also reviewed the benefit of consistent device use of CPAP for hypertension. * Continue auto CPAP pressure at 11-14 cmH2O * Notify me if snoring with mask or feeling that the pressure is too much or too little * Attempt to lose weight * Call this office if any problems using CPAP * Return for follow up in 1 year, or sooner if concerns arise Counseling Topics: Spare mask, Weight loss health impact Visit Type: Telehealth Video Video Type: VSee Patient Location: Home Location of Provider: Office Patient agrees and consents to this telehealth visit type: Yes Patient agrees to have their insurance billed: Yes Time Spent with Patient (minutes): 20 Provider Statement: I spent 100% of the Telehealth Video Call with the patient with greater than 50% spent counseling the patient and coordination of care.
== END 2021-09-06 10:05 | disposition home or self-care (01) ==
LOC: SC 10:04
PROVIDERS: ATTEND Nurse Practitioner Family
DX: G47.33 Obstructive sleep apnea (adult) (pediatric) (principal)

== ENCOUNTER 2022-02-14 08:03 | Outpatient (CLI) | payer MEDICARE, OTHER ==
[2022-02-14 08:25] LABS: BASOPHILS % (AUTO) 0.3 %; EOSINOPHILS # (AUTO) 0.2 10^3/uL (0.0-0.7); HCT - HEMATOCRIT 38.2 % (37.0-47.0); HGB - HEMOGLOBIN 12.6 g/dL (12.0-16.0); LYMPHOCYTES # (AUTO) 2.4 10^3/uL (1.5-3.5); LYMPHOCYTES % (AUTO) 35.7 %; MEAN CORPUSCULAR VOLUME 93.9 fL (81.0-99.0); MEAN PLATELET VOLUME 9.9 fL (7.9-10.8); MONOCYTES # (AUTO) 0.6 10^3/uL (0.0-1.0); MONOCYTES % (AUTO) 8.3 %; NEUTROPHILS # (AUTO) 3.5 10^3/uL (1.5-6.6); NEUTROPHILS % (AUTO) 52.5 %; PLT - PLATELET COUNT 160 10^3/uL (130-450); RED BLOOD COUNT 4.07 10^6/uL (4.20-5.40); RED CELL DISTRIBUTION WIDTH 12.8 % (12.0-15.0); WHITE BLOOD COUNT 6.6 x10^3/uL (4.8-10.8)
[2022-02-14 08:47] LABS: ALBUMIN 3.9 g/dL (3.2-5.5); ALBUMIN/GLOBULIN RATIO 1.2 (1.0-2.2); ALKALINE PHOSPHATASE 73 IU/L (42-121); ALT ALANINE AMINOTRANSFERASE 13 IU/L (10-60); AST ASPARTATE AMINOTRANSFERASE 14 IU/L (10-42); BILIRUBIN,TOTAL 0.8 mg/dL (0.2-1.0); BUN - BLOOD UREA NITROGEN 14 mg/dL (6-20); CALCIUM 9.2 mg/dL (8.5-10.3); CARBON DIOXIDE - CO2 28 mmol/L (21-32); CHLORIDE 104 mmol/L (101-111); CHOL/HDL RATIO 3.6 (<4.4); CHOLESTEROL 162 mg/dL; CREATININE 0.8 mg/dL (0.4-1.0); GFR - MDRD 71 (>89); GLUCOSE 112 mg/dL (70-100); HDL CHOLESTEROL 45 mg/dL; LDL CHOLESTEROL,CALCULATED 95 mg/dL; LDL/HDL RATIO 2.1 (<4.4); POTASSIUM 3.8 mmol/L (3.5-5.0); SODIUM 139 mmol/L (135-145); TOTAL PROTEIN 7.2 g/dL (6.7-8.2); TRIGLYCERIDES 108 mg/dL; VLDL CHOLESTEROL 22 mg/dL
[2022-02-14 08:59] LABS: THYROID STIMULATING HORMONE 1.6 uIU/mL (0.34-5.60)
[2022-02-14 09:02] LABS: ESTIMATED AVERAGE GLUCOSE 111 mg/dL (70-100); HEMOGLOBIN A1c% 5.5 % (4.27-6.07)
== END 2022-02-14 08:04 | disposition home or self-care (01) ==
LOC: LAB 08:03
PROVIDERS: ATTEND Internal Medicine
DX: I10 Essential (primary) hypertension (principal); E78.5 Hyperlipidemia, unspecified; R73.01 Impaired fasting glucose; Z13.29 Encounter for screening for other suspected endocrine disorder
CPT/HCPCS: 36415; 80053; 80061; 83036; 83721; 84443; 85025

== ENCOUNTER 2022-02-16 06:58 | Outpatient (CLI) | payer MEDICARE, OTHER ==
--- NOTE | 2022-02-16 12:18 | CT Report ---
PROCEDURE: CHEST WO INDICATIONS: PULMONARY NODULE TECHNIQUE: Noncontrast 1mm axial images were acquired from the pulmonary apices to the posterior costophrenic an gles. Axial 5 mm soft tissue kernel reconstructions were performed as well as 8 mm axial MIP and cor onal and sagittal 5 mm reformations. For radiation dose reduction, the following was used: automate d exposure control, adjustment of mA and/or kV according to patient size. COMPARISON: 10/27/2020 FINDINGS: Image quality: Excellent. Lungs and pleura: A 6 mm nodule in the right lower lobe in the azygoesophageal recess series 4 image 210 is unchanged. No new pulmonary nodules. No acute air space opacities. No pleural effusions or p neumothorax. Central and peripheral airways are patent and normal in caliber. Mediastinum: Heart size is enlarged. Coronary artery calcifications are seen. No pericardial effusi on. No mediastinal adenopathy by size criteria. Thoracic aorta and central pulmonary arteries are n ormal in size. Esophagus is normal in caliber. No hiatal hernia. Bones and chest wall: No suspicious bony lesions. No vertebral body compression fractures. No axil deven or supraclavicular adenopathy by size criteria. The thyroid is normal in size. There are multi level degenerative changes throughout the thoracic and lumbar spine without acute abnormality. Abdomen: Visualized upper abdominal solid organs and bowel loops appear normal in the absence of con trast. IMPRESSION: 1. Stable right lower lobe pulmonary nodule. 2. Coronary artery disease. Reviewed by: Sergio Kramer on 02/16/2022 12:17 PM PDT Approved by: Sergio Kramer on 02/16/2022 12:17 PM PDT Station ID: [id number]
== END 2022-02-16 06:59 | disposition home or self-care (01) ==
LOC: DI 06:58
PROVIDERS: ATTEND Internal Medicine
DX: R91.1 Solitary pulmonary nodule (principal); I25.10 Atherosclerotic heart disease of native coronary artery without angina pectoris

== ENCOUNTER 2022-03-12 13:00 | Outpatient (CLI) | payer MEDICARE, OTHER | END 2022-03-12 13:01 | disposition home or self-care (01) | LOC: DI 13:00 | PROVIDERS: ATTEND Internal Medicine | DX: Z53.9 Procedure and treatment not carried out, unspecified reason (principal) ==

== ENCOUNTER 2022-04-20 09:08 | Outpatient (CLI) | payer MEDICARE, OTHER ==
--- NOTE | 2022-04-20 15:18 | Mammography Report ---
BILATERAL DIGITAL SCREENING MAMMOGRAM 3D/2D: 04/20/2022 CLINICAL: Routine screening. Comparison is made to exams dated: 11/04/2020 mammogram, 03/11/2019 mammogram, 03/04/2017 mammogram, mammogram, 12/27/2014 mammogram, and 12/15/2013 mammogram - [facility]. Both breasts are almost entirely fatty (category a/<25% glandular tissue). No significant masses, calcifications, or other findings are seen in either breast. There has been no significant interval change. IMPRESSION: NEGATIVE There is no mammographic evidence of malignancy. A 1 year screening mammogram is recommended. Based on the Tyrer Cuzick model (a risk assessment model) the patients lifetime risk is 2.1% and her 10 year risk is 1.4%. According to the ACR, ACS, and NCCN guidelines, an annual breast MRI exam alice g with mammogram is recommended if the patients lifetime risk is 20% or greater. This exam was interpreted at Station ID: [id number]. NOTE: For mammograms, a report in lay terms will be sent to the patient. Approximately 15% of breast malignancies will not be visualized mammographically. In the management of a palpable breast mass, a negative mammogram must not discourage biopsy of a clinically suspicious lesion. Electronically Signed By: John Griffith M.D., [email or web address]/[email or web address]:04/20/2022 12:57:35 ACR BI-RADS Category 1: Negative 3341F PARENCHYMAL PATTERN: (F) - The breast(s) demonstrate(s) diffuse fatty replacement. BI-RADS CATEGORY: (1) - 1 RECOMMENDATION: (ANNUAL) - Recommend routine annual screening mammography. [id number] 1 year screening LATERALITY: (B)
== END 2022-04-20 09:09 | disposition home or self-care (01) ==
LOC: DI 09:08
PROVIDERS: ATTEND Internal Medicine
DX: Z12.31 Encounter for screening mammogram for malignant neoplasm of breast (principal)

== ENCOUNTER 2022-04-27 09:25 | Day surgery (SDC) | payer MEDICARE, OTHER ==
[2022-04-27] MEDS ORDERED: LACTATED RINGERS 1,000 ML IV ONE ×2 (09:59→12:09)
--- NOTE | 2022-04-27 10:50 | ANESTHESIA ---
Pre-Anesthesia VS, & Labs - Diagnosis hx of polyps - Procedure colonoscopy Vital Signs: Temp Pulse Resp BP Pulse Ox O2 Flow Rate 36.5 C 67 14 156/94 H 99 04/27/22 09:44 04/27/22 09:44 04/27/22 09:44 04/27/22 09:44 04/27/22 09:44 Height: 5 ft 3 in Weight (kg): 110.5 kg Body Mass Index: 43.1 BMI Classification: Morbidly Obese - NPO >8 hours - Is Patient ?: No Home Medications and Allergies Aspirin [Aspir 81] 81 mg PO DAILY 07/31/14 Lovastatin [Altoprev] 40 mg ORAL DAILY 07/31/14 Metoprolol Tartrate [Lopressor] 100 mg PO DAILY 07/31/14 Valacyclovir HCl [Valtrex] 500 mg PO DAILY 07/31/14 Allergies/Adverse Reactions: Allergies Allergy/AdvReac Type Severity Reaction Status Date / Time No Known Drug Allergies Allergy Verified 12/16/20 11:56 Anes History & Medical History - Anesthetic History Anesthesia Complications: reports: No previous complications Family history of Anesthesia Complications: Denies Family history of Malignant Hyperthermia: Denies - Medical History Cardiovascular: reports: Congestive heart failure, Hypertension, High cholesterol Pulmonary: reports: Sleep apnea, CPAP use Gastrointestinal: reports: Hiatal hernia, Colon polyps Urinary: reports: None Musculoskeletal: reports: None Endocrine/Autoimmune: reports: None Skin: reports: None Smoking Status: Never smoker - Surgical History General: reports: Cholecystectomy, Colonoscopy, Other Exam General: Alert, Oriented x3, Cooperative Dental: WNL Mouth Openin Fingerbreadth Neck Mobility: Normal Mallampati classification: II Thyromental Distance: less than 4 cm Respiratory: Lungs clear Cardiovascular: Regular rate Plan Anesthesia Type: Total IV Consent for Procedure(s) Verified and Reviewed: Yes Code Status: Attempt Resuscitation ASA classification: 2-Mild systemic disease Is this case an emergency?: No
[2022-04-27] MEDS ORDERED: PROPOFOL 500 MG/50 ML 500 MG/50 ML VIAL ONE (10:59)
--- NOTE | 2022-04-27 11:03 | HISTORY & PHYSICAL EXAMINATION ---
Chief Complaint - Chief Complaint Chief Complaint: here for colonoscopy History of Present Illness - History Obtained From Records Reviewed: yes History obtained from: pt Exam Limitations: none - History of Present Illness HPI Comment/Other: large colon polyp proximal transverse colon removed piecemeal over a year ago. here for surveillance no gi symptoms History - Past Medical History Cardiovascular: reports: Congestive heart failure, Hypertension, High cholesterol Respiratory: reports: Sleep apnea, CPAP use Endocrine/Autoimmune: reports: None GI: reports: Hiatal hernia, Colon polyps : reports: None HEENT: reports: None Psych: reports: None Musculoskeletal: reports: None Derm: reports: None MRSA Hx?: No - Past Surgical History General: reports: Cholecystectomy, Colonoscopy, Other Meds/Allgy - Home Medications Home Medications: Ambulatory Orders Medication Instructions Recorded Confirmed Aspirin [Aspir 81] 81 mg PO DAILY 07/31/14 04/27/22 Lovastatin [Altoprev] 40 mg ORAL DAILY 07/31/14 04/27/22 Metoprolol Tartrate [Lopressor] 100 mg PO DAILY 07/31/14 04/27/22 Valacyclovir HCl [Valtrex] 500 mg PO DAILY 07/31/14 04/27/22 - Allergies Allergies/Adverse Reactions: Allergies Allergy/AdvReac Type Severity Reaction Status Date / Time No Known Drug Allergies Allergy Verified 12/16/20 11:56 Review of Systems - Other Findings Other Findings: 10 pt ros as above otherwise unremarkable Exam - Vital Signs Reviewed Vital Signs: Yes Vital Signs: Vital Signs x48h Temp Pulse Resp BP Pulse Ox 04/27/22 09:44 36.5 C 67 14 156/94 H 99 - Physical Exam General Appearance: positive: No acute distress, Alert Eyes Bilateral: positive: PERRL, EOMI, No scleral icterus ENT: positive: No signs of dehydration Neck: positive: No JVD, Trachea midline Respiratory: positive: No respiratory distress, Breath sounds nml Cardiovascular: positive: Regular rate & rhythm Abdomen: positive: Non-tender, No distention Neurologic/Psychiatric: positive: Oriented x3 Conclusion/Plan - Problem List (1) History of adenomatous polyp of colon Conclusion/Plan: plan colonoscopy. parq held and consent obtained
[2022-04-27] MEDS ORDERED: PROPOFOL 200 MG/20 ML VIAL IVP ONE (12:02)
[2022-04-27 12:30] VITALS: BP 116/64
--- NOTE | 2022-04-27 13:48 | ANESTHESIA POST OP EVALUATION ---
Anesthesia Post Eval - Post Anesthesia Eval Vitals: Last Vital Signs Temp 36.5 C 04/27/22 12:29 Pulse 65 04/27/22 12:29 Resp 16 04/27/22 12:29 BP 116/64 04/27/22 12:29 Pulse Ox 99 04/27/22 12:29 O2 Flow Rate CV Function Including HR & BP: Stable Pain Control: Satisfactory Nausea & Vomiting: Negative Mental Status: Baseline Respiratory Status: Airway Patent Hydration Status: Satisfactory Anesthesia Complications: None
== END 2022-04-27 09:26 | disposition home or self-care (01) ==
LOC: SDS 09:25
PROVIDERS: ATTEND Surgery
PROC: 0DBL8ZX Excision of Transverse Colon, Via Natural or Artificial Opening Endoscopic, Diagnostic (ICD-10-PCS; 2022-04-27)
PROC: 0DBM8ZX Excision of Descending Colon, Via Natural or Artificial Opening Endoscopic, Diagnostic (ICD-10-PCS; 2022-04-27)
PROC: 0DBH8ZX Excision of Cecum, Via Natural or Artificial Opening Endoscopic, Diagnostic (ICD-10-PCS; principal; 2022-04-27 10:45)
DX: D12.1 Benign neoplasm of appendix (principal); D12.3 Benign neoplasm of transverse colon; D12.4 Benign neoplasm of descending colon; I11.0 Hypertensive heart disease with heart failure; I50.9 Heart failure, unspecified; G47.30 Sleep apnea, unspecified; E66.01 Morbid (severe) obesity due to excess calories; Z68.41 Body mass index [BMI] 40.0-44.9, adult
CPT/HCPCS: 45380; 45385; J7120

== ENCOUNTER 2022-06-26 09:29 | Outpatient (CLI) | payer MEDICARE, OTHER ==
[2022-06-26 11:39] LABS: BASOPHILS % (AUTO) 0.5 %; EOSINOPHILS # (AUTO) 0.2 10^3/uL (0.0-0.7); EOSINOPHILS % (AUTO) 2.7 %; HCT - HEMATOCRIT 40.6 % (37.0-47.0); HGB - HEMOGLOBIN 12.7 g/dL (12.0-16.0); LYMPHOCYTES # (AUTO) 2.9 10^3/uL (1.5-3.5); LYMPHOCYTES % (AUTO) 39.7 %; MEAN CORPUSCULAR HEMOGLOBIN 29.8 pg (27.0-31.0); MEAN CORPUSCULAR HGB CONC 31.3 g/dL (32.0-36.0); MEAN CORPUSCULAR VOLUME 95.3 fL (81.0-99.0); MEAN PLATELET VOLUME 10.5 fL (7.9-10.8); MONOCYTES # (AUTO) 0.5 10^3/uL (0.0-1.0); NEUTROPHILS # (AUTO) 3.7 10^3/uL (1.5-6.6); NEUTROPHILS % (AUTO) 49.7 %; PLT - PLATELET COUNT 192 10^3/uL (130-450); RED BLOOD COUNT 4.26 10^6/uL (4.20-5.40); RED CELL DISTRIBUTION WIDTH 13.1 % (12.0-15.0); WHITE BLOOD COUNT 7.4 x10^3/uL (4.8-10.8)
[2022-06-26 12:21] LABS: ALBUMIN 4.2 g/dL (3.2-5.5); ALBUMIN/GLOBULIN RATIO 1.2 (1.0-2.2); BILIRUBIN,TOTAL 0.6 mg/dL (0.2-1.0); CALCIUM 9.2 mg/dL (8.5-10.3); CREATININE 0.9 mg/dL (0.4-1.0); POTASSIUM 3.7 mmol/L (3.5-5.0); TOTAL PROTEIN 7.6 g/dL (6.7-8.2)
[2022-06-28 13:10] LABS: T-TRANSGLUTAMINASE (TTG) IGA <2 U/mL (0-3); T-TRANSGLUTAMINASE (TTG) IGG <2 U/mL (0-5)
== END 2022-06-26 09:30 | disposition home or self-care (01) ==
LOC: LAB.N 09:29
PROVIDERS: ATTEND Family Medicine
DX: K52.9 Noninfective gastroenteritis and colitis, unspecified (principal)
CPT/HCPCS: 36415; 80053; 83516; 85025; 85651; 86364

== ENCOUNTER 2022-06-27 08:00 | Outpatient (CLI) | payer MEDICARE, OTHER | END 2022-06-27 23:59 | disposition home or self-care (01) | LOC: LAB.N 08:00 | PROVIDERS: ATTEND Family Medicine | DX: K52.9 Noninfective gastroenteritis and colitis, unspecified (principal) | CPT/HCPCS: 87045; 87046; 87329; 87427; 87493 ==

== ENCOUNTER 2022-09-06 09:12 | Outpatient (CLI) | payer MEDICARE, OTHER ==
--- NOTE | 2022-09-06 09:36 | SLEEP CARE CONSULTATION ---
Information from patient questionnaire entered by Jailene Sawyer. I have reviewed and concur with the information entered by Jailene Sawyer. This document represents the service I personally performed and the decisions made by me, Areli Peterson ARNP. History of Present Illness Service Date and Time: 09/06/2022911 Previous diagnosis: Severe, Obstructive Sleep Apnea-Hypopnea Syndrome AHI: 36.1 (in 2007) Reason for follow up: annual (LAST SEEN 08/2021) Equipment type: CPAP (RESMED Airsense 11, s/u 06/2021) Equipment obtained from: [employer] (getting supplies) Mask style: Nasal Mask brand: Resmed (N20) Backup mask available: Yes (old mask) Last cushion change: last weekend Prior sleep studies: Yes Year and Where: 2007 - [facility] Type of Sleep Study: Home sleep study HPI additional information: NADER ANDREWS was diagnosed to have severe, AHI 36.1, obstructive sleep apnea- hypopnea syndrome and returned today for CPAP therapy annual follow-up. Sleep Study - Results Type of Sleep Study: Polysomnography Prior sleep studies: Yes Year and Where: 2007 - [facility] CPAP Compliance Data - Data Reviewed with Patient Average duration of nightly device use: 7 HRS 18 MIN Compliance rate %: 96 (-09/04/22; 174/180 days used) Current pressure setting (cmH2O): 11-14 Average residual AHI: 1.5 Central apnea: 0.3 Obstructive apnea: 0.1 Hypopnea: 1.1 Average large leak: 13.9 lpm Subjective Missed days of use due to: reports: other (power outages) Patient concerns: reports: air blowing in eyes, mask leak noise. denies: aerophagia, mask discomfort, condensation in mask/hose, nasal congestion, dry mouth, nose, throat, epistaxis Observed to snore while using device: Yes (occasional) Current pressure setting perceived as: comfortable On therapy, patient: reports: sleeping better, awakening more refreshed, being more awake and alert during the day, more rested overall. denies: drowsiness while driving Initial [place] Sleepiness Scale score: 9 (in 2007) Current [place] Sleepiness Scale score: 2 (09/06/22) Allergies and Home Medications Known drug allergies: No Drug allergies reviewed: Yes Home medication list reviewed: Yes (Latanoprost) Allergy and home medication list: Allergies No Known Drug Allergies Allergy (Verified 09/05/22 13:43) Review of Systems Review of systems same as previous: No (glaucoma) Physical Exam Vital signs obtained and entered by: JAILENE Serrano MA Blood Pressure: 130/80 (LEFT ARM) Cuff size: regular Heart Rate: 72 O2 Saturation: 96 Height: 5 ft 3 in Weight: 247 lb 12.8 oz Weight change since last visit: 18 lb loss Body Mass Index: 43.9 BMI Classification: Morbidly Obese Impression and Plan 1. Obstructive Sleep Apnea-Hypopnea Syndrome, severe, with good treatment compliance and good apnea control. On CPAP therapy, the patient has better sleep quality and is more rested overall. Patient has significant improvement of their sleep apnea and is satisfied with current CPAP therapy. Patient was having some dry mouth from oral venting. She started using XyloMelts lozenges at night and this has resolved. Patient's apnea severity and rationale for treatment to reduce apnea, improve sleep quality and reduce cardiovascular and cerebrovascular events was reviewed. I also reviewed the benefit of consistent device use of CPAP for hypertension. 2. Obesity, unspecified. Currently patients BMI is 43.9. She has been increasing her exercise and GOLO for diet changes to lose weight. Obesity increases the risk of apnea, CPAP pressure requirements and overall health risks especially cardiovascular and diabetes. Thus patient is advised to continue to try to lose weight. * Continue auto CPAP pressure at 11-14 cmH2O * Update supplies * Notify me if snoring with mask or feeling that the pressure is too much or too little * Attempt to lose weight * Call this office if any problems using CPAP * Return for follow up in 1 year, or sooner if concerns arise Counseling Topics: Spare mask, Weight loss health impact Visit Type: In Office Time Spent with Patient (minutes): 21 Provider Statement: I spent 100% of the Face to Face Visit with the patient with greater than 50% spent counseling the patient and coordination of care.
[2022-09-06 09:37] VITALS: BP 130/80
== END 2022-09-06 09:13 | disposition home or self-care (01) ==
LOC: SC 09:12
PROVIDERS: ATTEND Nurse Practitioner Family
DX: G47.33 Obstructive sleep apnea (adult) (pediatric) (principal); E66.01 Morbid (severe) obesity due to excess calories; Z68.41 Body mass index [BMI] 40.0-44.9, adult
CPT/HCPCS: 99213; G0463; 99212

== ENCOUNTER 2023-05-13 06:26 | Day surgery (SDC) | payer MEDICARE, OTHER ==
[2023-05-13] MEDS ORDERED: LACTATED RINGERS 1,000 ML IV ONE ×2 (06:29→08:35)
--- NOTE | 2023-05-13 07:21 | ANESTHESIA ---
Pre-Anesthesia VS, & Labs - Diagnosis history of polyps - Procedure colonoscopy Vital Signs: Temp Pulse Resp BP Pulse Ox O2 Flow Rate 36.3 C L 64 16 159/988 H 98 05/13/23 06:33 05/13/23 06:33 05/13/23 06:33 05/13/23 06:33 05/13/23 06:33 Height: 5 ft 3 in Weight (kg): 111 kg Body Mass Index: 43.3 BMI Classification: Morbidly Obese - NPO Other (prep last at 3am) - Is Patient ?: No Home Medications and Allergies Aspirin [Aspir 81] 81 mg PO DAILY 07/31/14 Lovastatin [Altoprev] 40 mg ORAL DAILY 07/31/14 Metoprolol Tartrate [Lopressor] 100 mg PO DAILY 07/31/14 Valacyclovir HCl [Valtrex] 500 mg PO DAILY 07/31/14 Latanoprost 0.005% Ophth Drops [Xalatan Ophth Drops] See Rx Instructions .ROUTE .COMPLEX 09/06/22 Allergies/Adverse Reactions: Allergies Allergy/AdvReac Type Severity Reaction Status Date / Time No Known Drug Allergies Allergy Verified 09/06/22 09:18 Anes History & Medical History - Anesthetic History Anesthesia Complications: reports: No previous complications - Medical History Cardiovascular: reports: Congestive heart failure, Hypertension, High cholesterol Pulmonary: reports: Sleep apnea, CPAP use Gastrointestinal: reports: GERD Urinary: reports: None Musculoskeletal: reports: Osteoarthritis Endocrine/Autoimmune: reports: None Skin: reports: None Smoking Status: Never smoker History of Cancer?: No - Surgical History General: reports: Cholecystectomy, Bowel surgery Exam General: Alert, Oriented x3 Dental: WNL Mouth Opening: Greater than 4 Fingerbreadths Neck Mobility: Normal Mallampati classification: II Thyromental Distance: greater than 6 cm Respiratory: Lungs clear Cardiovascular: Regular rate Plan Anesthesia Type: Total IV Consent for Procedure(s) Verified and Reviewed: Yes Code Status: Attempt Resuscitation ASA classification: 3-Severe systemic disease Is this case an emergency?: No
[2023-05-13] MEDS ORDERED: GLUCAGON 1 MG/ML VIAL ONE (07:40)
[2023-05-13] MEDS ORDERED: PROPOFOL 200 MG/20 ML VIAL IVP ONE (08:26)
[2023-05-13 08:59] VITALS: BP 124/69; O2SAT 97
--- NOTE | 2023-05-13 10:03 | ANESTHESIA POST OP EVALUATION ---
Anesthesia Post Eval - Post Anesthesia Eval Vitals: Last Vital Signs Temp 36.2 C L 05/13/23 08:56 Pulse 65 05/13/23 08:56 Resp 20 05/13/23 08:56 BP 124/69 05/13/23 08:56 Pulse Ox 97 05/13/23 08:56 O2 Flow Rate CV Function Including HR & BP: Stable Pain Control: Satisfactory Nausea & Vomiting: Negative Mental Status: Baseline Respiratory Status: Airway Patent Hydration Status: Satisfactory Anesthesia Complications: None
== END 2023-05-13 06:27 | disposition home or self-care (01) ==
LOC: SDS 06:26
PROVIDERS: ATTEND Surgery
PROC: 0DBL8ZZ Excision of Transverse Colon, Via Natural or Artificial Opening Endoscopic (ICD-10-PCS; principal; 2023-05-13 07:30)
DX: Z12.11 Encounter for screening for malignant neoplasm of colon (principal); D12.3 Benign neoplasm of transverse colon; K57.30 Diverticulosis of large intestine without perforation or abscess without bleeding; K64.9 Unspecified hemorrhoids; E66.01 Morbid (severe) obesity due to excess calories; Z68.41 Body mass index [BMI] 40.0-44.9, adult; G47.30 Sleep apnea, unspecified; I11.0 Hypertensive heart disease with heart failure; I50.9 Heart failure, unspecified
CPT/HCPCS: 45380; 45385; J1610; J7120

== ENCOUNTER 2023-06-12 15:00 | Outpatient (CLI) | payer MEDICARE, OTHER ==
--- NOTE | 2023-06-14 11:48 | Mammography Report ---
BILATERAL DIGITAL SCREENING MAMMOGRAM 3D/2D: 06/12/2023 CLINICAL: Routine screening. Comparison is made to exams dated: 04/20/2022 mammogram, 11/04/2020 mammogram, 03/11/2019 mammogram, an d 03/04/2017 mammogram - [facility]. Both breasts are almost entirely fatty (category a/<25% glandular tissue). No significant masses, calcifications, or other findings are seen in either breast. There has been no significant interval change. IMPRESSION: NEGATIVE There is no mammographic evidence of malignancy. A 1 year screening mammogram is recommended. Based on the Tyrer Cuzick model (a risk assessment model) the patients lifetime risk is 1.8% and her 10 year risk is 1.5%. According to the ACR, ACS, and NCCN guidelines, an annual breast MRI exam alice g with mammogram is recommended if the patients lifetime risk is 20% or greater. This exam was interpreted at Station ID: [id number]. NOTE: For mammograms, a report in lay terms will be sent to the patient. Approximately 15% of breast malignancies will not be visualized mammographically. In the management of a palpable breast mass, a negative mammogram must not discourage biopsy of a clinically suspicious lesion. Electronically Signed By: Simon [email or web address]:06/13/2023 17:26:46 ACR BI-RADS Category 1: Negative 3341F PARENCHYMAL PATTERN: (F) - The breast(s) demonstrate(s) diffuse fatty replacement. BI-RADS CATEGORY: (1) - 1 Mammogram [id number] 1 year screening LATERALITY: (B)
== END 2023-06-12 15:01 | disposition home or self-care (01) ==
LOC: DI 15:00
DX: Z12.31 Encounter for screening mammogram for malignant neoplasm of breast (principal)

== ENCOUNTER 2023-09-10 08:42 | Outpatient (CLI) | payer MEDICARE, OTHER ==
--- NOTE | 2023-09-10 09:17 | Sleep Patient Instructions ---
Sleep Center Visit Summary - Patient Visit Information Reason for Visit: Annual follow-up - Patient Instructions Additional Instructions: You will continue with CPAP therapy with pressure set at 11-14 cmH2O. A supply prescription will be updated with your DME. We encourage you to continue to try to lose weight. Please follow up with the sleep care office in 1 year. - Clinic Information Contact: [facility] [address] [place] [address] [email or web address] T: [phone]
--- NOTE | 2023-09-10 09:21 | SLEEP CARE CONSULTATION ---
Information from patient questionnaire entered by Jailene Sawyer. I have reviewed and concur with the information entered by Jailene Sawyer. This document represents the service I personally performed and the decisions made by , Areli Peterson ARNP. History of Present Illness Service Date and Time: 09/10/2023 0842 Previous diagnosis: Severe, Obstructive Sleep Apnea-Hypopnea Syndrome AHI: 36.1 (in 2007) Reason for follow up: annual (LAST SEEN 08/2022) Equipment type: CPAP (RESMED Airsense 11, s/u 06/2021) Equipment obtained from: [employer] ([employer]) Mask style: Nasal Mask brand: Resmed ([id number], large cushion) Backup mask available: Yes Last cushion change: 1.5 weeks Prior sleep studies: Yes Year and Where: 2007 - [facility] Type of Sleep Study: Polysomnography HPI additional information: NADER ANDREWS was diagnosed to have severe, AHI 36.1, obstructive sleep apnea- hypopnea syndrome and returned today for CPAP therapy annual follow-up. Sleep Study - Results Type of Sleep Study: Polysomnography Prior sleep studies: Yes Year and Where: 2007 - [facility] CPAP Compliance Data - Data Reviewed with Patient Average duration of nightly device use: 7 HRS 14 MINS Compliance rate %: 99 (09/06/22-09/05/23; 362/365 days used) Current pressure setting (cmH2O): 11-14 Average residual AHI: 1.9 Central apnea: 0.1 Obstructive apnea: 0.2 Hypopnea: 1.4 Average large leak: 22.2 L/min Subjective Missed days of use due to: reports: other (power outages) Patient concerns: reports: dry mouth, nose, throat (dry mouth, uses lozenges and it helps). denies: aerophagia, mask discomfort, air blowing in eyes, mask leak noise, condensation in mask/hose, nasal congestion, epistaxis Observed to snore while using device: Yes (sometimes) Current pressure setting perceived as: comfortable On therapy, patient: reports: sleeping better, awakening more refreshed, being more awake and alert during the day, more rested overall. denies: drowsiness while driving Initial [place] Sleepiness Scale score: 9 (in 2007) Current [place] Sleepiness Scale score: 5 Allergies and Home Medications Known drug allergies: No Drug allergies reviewed: Yes Home medication list reviewed: Yes (as listed) Allergy and home medication list: Allergies No Known Drug Allergies Allergy (Verified 09/06/23 08:58) Home Medications Medication Instructions Recorded Confirmed Last Taken Type Aspirin [Aspir 81] 81 mg PO DAILY 07/31/14 09/10/23 05/07/23 History Lovastatin [Altoprev] 40 mg ORAL DAILY 07/31/14 09/10/23 05/12/23 History Metoprolol Tartrate [Lopressor] 100 mg PO DAILY 07/31/14 09/10/23 05/12/23 History Valacyclovir HCl [Valtrex] 500 mg PO DAILY 07/31/14 09/10/23 05/12/23 History Latanoprost 0.005% Ophth Drops See Rx Instructions .ROUTE .COMPLEX 09/06/22 09/10/23 05/12/23 History [Xalatan Ophth Drops] Vitamin D3 See Rx Instructions .ROUTE .COMPLEX 09/10/23 09/10/23 Unknown History Review of Systems Review of systems same as previous: Yes Physical Exam Vital signs obtained and entered by: ARELI MAYFIELD Blood Pressure: 145/73 Cuff size: long (left arm) Heart Rate: 66 O2 Saturation: 97 Height: 5 ft 3 in Weight: 258 lb 12.8 oz Weight change since last visit: 11 lb gain Body Mass Index: 45.8 BMI Classification: Morbidly Obese Impression and Plan 1. Obstructive Sleep Apnea-Hypopnea Syndrome, severe, with good treatment compliance and good apnea control. On CPAP therapy, the patient has better sleep quality and is more rested overall. Patient has significant improvement of their sleep apnea and is satisfied with current CPAP therapy. Patient gets some dry mouth and her tells her she is snoring sometimes. She thinks she may be oral venting occasionally. She uses a lozenge in her mouth which helps a lot with the dry mouth and some with the snoring as well. She has tried a chinstrap in the past which did not work for her. I advised that she could try some snoring strips on her mouth to keep her lips together. She voiced understanding and will look into this. Patient's apnea severity and rationale for treatment to reduce apnea, improve sleep quality and reduce cardiovascular and cere brovascular events was reviewed. I also reviewed the benefit of consistent device use of CPAP for hypertension. 2. Obesity, unspecified. Currently patients BMI is 45.8. Obesity increases the risk of apnea, CPAP pressure requirements and overall health risks especially cardiovascular and diabetes. Thus patient is advised to lose weight. * Continue auto CPAP pressure at 11-14 cmH2O * Update supply prescription * Notify me if snoring with mask or feeling that the pressure is too much or too little * Attempt to lose weight * Call this office if any problems using CPAP * Return for follow up in 12 months, or sooner if concerns arise Counseling Topics: Spare mask, Weight loss health impact Prescriptions: Device supplies Follow up with Sleep Care in: 1 year Visit Type: In Office Time Spent with Patient (minutes): 20 Provider Statement: I spent 100% of the Face to Face Visit with the patient with greater than 50% spent counseling the patient and coordination of care.
[2023-09-10 09:22] VITALS: BP 145/73; O2SAT 97
== END 2023-09-10 08:43 | disposition home or self-care (01) ==
LOC: SC 08:42
PROVIDERS: ATTEND Nurse Practitioner Family
DX: G47.33 Obstructive sleep apnea (adult) (pediatric) (principal); E66.01 Morbid (severe) obesity due to excess calories; Z68.42 Body mass index [BMI] 45.0-49.9, adult
CPT/HCPCS: 99213; G0463; 99212

== ENCOUNTER 2023-12-05 18:26 | Outpatient (CLI) | payer MEDICARE, OTHER ==
--- NOTE | 2023-12-06 12:17 | Ultrasound Report ---
PROCEDURE: Renal (Retroperitoneal) INDICATIONS: BILATERAL RENAL CYSTS TECHNIQUE: Real-time scanning was performed of the retroperitoneal organs, with image documentation. COMPARISON: CT abdomen pelvis 11/12/2019, ultrasound 08/02/2018 FINDINGS: Kidneys: Kidneys are normal in size. Right kidney measures 13.2 cm long; left kidney measures 11.3 cm long. Right renal cortical thickness is 1.9 cm; left renal cortical thickness is 1.4 cm. No tanya d masses, hydronephrosis, or nephrolithiasis. There is a partially exophytic right mid to lower pole simple cyst measuring 7.5 x 6.0 x 6.6 cm. 1.0 cm cortical medullary cyst in the upper pole right kid nela.There is a 0.7 cm echogenic parenchymal focus in the lower pole left kidney. Bladder: Pre-void bladder volume is 362 mL. Post-void residual is 40 mL. Pre-void images demonstra te no intraluminal masses or stones. On pre-void images, bilateral ureteral jets are noted with colo r Doppler interrogation. (Of note, ureteral jets may not be detectable in up to 25% of cases due to insufficient differences in specific gravity between ureteral and bladder urine). Miscellaneous: No free abdominal fluid. IMPRESSION: Simple right renal cysts, the largest measuring 7.5 cm. 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 Small postvoid residual in the urinary bladder. Reviewed by: Janice Dunbar MD on 12/06/2023 12:16 PM PDT Approved by: Janice Dunbar MD on 12/06/2023 12:16 PM PDT Station ID: [id number]
== END 2023-12-05 18:27 | disposition home or self-care (01) ==
LOC: DI 18:26
PROVIDERS: ATTEND Internal Medicine
DX: N28.1 Cyst of kidney, acquired (principal)

== ENCOUNTER 2024-02-11 10:42 | Outpatient (CLI) | payer MEDICARE, OTHER ==
[2024-02-11 18:08] LABS: ALBUMIN 4.1 g/dL (3.2-5.5); ALKALINE PHOSPHATASE 65 IU/L (42-121); ALT ALANINE AMINOTRANSFERASE 8 IU/L (10-60); AST ASPARTATE AMINOTRANSFERASE 10 IU/L (10-42); BILIRUBIN,DIRECT < 0.10 mg/dL (0.03-0.18); BILIRUBIN,TOTAL 0.5 mg/dL (0.2-1.0); CHOL/HDL RATIO 3.3 (<4.4); CHOLESTEROL 144 mg/dL; HDL CHOLESTEROL 43 mg/dL; LDL CHOLESTEROL,CALCULATED 80 mg/dL; LDL/HDL RATIO 1.9 (<4.4); TRIGLYCERIDES 106 mg/dL; VLDL CHOLESTEROL 21 mg/dL
== END 2024-02-11 10:43 | disposition home or self-care (01) ==
LOC: LAB.N 10:42
PROVIDERS: ATTEND Internal Medicine
DX: E78.5 Hyperlipidemia, unspecified (principal)
CPT/HCPCS: 36415; 80061; 80076; 83721